=== PATIENT | female | born 1970 | race African-American/Black ===

== ENCOUNTER 2018-08-12 16:19 | Inpatient (IN) ==
[2018-08-12] MEDS ORDERED: Sod Chloride 0.9% Inj 1,000 ML IV.CONT SCH ×2 (16:30→19:02)
--- NOTE | 2018-08-12 16:40 | ED ---
HPI General Chief Complaint: Stroke Alert Stated Complaint: Medical Time Seen by Provider: 08/12/18 16:29 Source: EMS Mode of arrival: EMS Limitations: altered mental status History of Present Illness HPI Narrative: Patient is a 48-year-old female, past medical history significant for type 2 diabetes controlled with insulin, and diabetic retinopathy, who presents with complaint of difficulty swallowing. She was at the pharmacometrician office today to have a laser procedure done to her right eye. She had a lidocaine injection and then became unresponsive temporarily. She then began to complain of difficulty swallowing plus slight shortness of breath. She was given IM epinephrine, Benadryl and was brought here. EMS reports an elevated blood glucose. Patient complains of difficulty swallowing, dizziness. No numbness nor weakness. She denies throat swelling. Onset (ago): hour(s) Location: Reports speech and dysarthria History of same: No Exacerbating factors: none Context: Reports sudden onset On Anticoagulants: No Associated symptoms: Reports vertigo Treatments Prior to Arrival: Reports other medication Related Data Home Medications Medication Instructions Recorded Confirmed insulin aspart U-100 [Novolog 1 unit SUBCUT TID 08/12/18 08/12/18 U-100 Insulin aspart] insulin glargine [Lantus U-100 25 unit SUBCUT HS 08/12/18 08/12/18 Insulin] Allergies Allergy/AdvReac Type Severity Reaction Status Date / Time ketorolac Allergy Severe Hives Verified 08/12/18 16:24 Review of Systems ROS: all other systems reviewed are negative [facility] Medical History Medical History Diabetes (Acute) Surgical History Surgical History H/O eye surgery (Acute) H/O knee surgery (Acute) Hx of cholecystectomy (Acute) Social History Social History Substance History: No History of Abuse Second Hand Smoke Exposure: No Smoking Status: Never smoker How Often Do You Have a Drink Containing Alcohol: Never Recent Travel in [facility] [[email or web address]] within the Last 8 Weeks: No Exam Narrative Exam Narrative: GENERAL: well-appearing female in no acute distress, patch on R eye SKIN: Focused skin assessment warm/dry. No rashes. HEAD: Atraumatic. Normocephalic. EYES: Pupils equal and round. No scleral icterus. No injection or drainage. Swelling around R eye, unable to move eye much or open eyelid ENT: No nasal bleeding or discharge. Mucous membranes pink and moist. NECK: Trachea midline. No JVD. CARDIOVASCULAR: Regular rate and rhythm. No murmur appreciated. RESPIRATORY: No accessory muscle use. Clear to auscultation. Breath sounds equal bilaterally. GASTROINTESTINAL: Abdomen soft, non-tender, nondistended. Hepatic and splenic margins not palpable. MUSCULOSKELETAL: No obvious deformities. No clubbing. No cyanosis. No edema. NEUROLOGICAL: Awake and alert. No easily visible facial droop, but R face is slightly swollen. Motor grossly within normal limits. Slurred speech. No ataxia. Normal sensation. PSYCHIATRIC: Appropriate mood and affect; insight and judgment normal. Course Initial Documented Vital Signs Temperature 97.8 F 08/12/18 16:25 Pulse Rate 89 08/12/18 16:25 Respiratory Rate 17 08/12/18 16:25 Blood Pressure 178/86 H 08/12/18 16:25 Pulse Oximetry 100 08/12/18 16:25 Last Documented Vital Signs Temperature 97.7 F 08/12/18 17:41 Pulse Rate 86 08/12/18 17:41 Respiratory Rate 17 08/12/18 17:41 Blood Pressure 177/70 H 08/12/18 17:41 Pulse Oximetry 100 08/12/18 17:41 NIH Stroke Scale NIH Stroke Scale Level of Consciousness: 1-Drowsy Orientation Questions: 0-Answers both correct Responds to Commands: 0-Both tasks correct Visual Duffy: 0-No visual field defect Facial Movement: 0-Normal Motor Functions Arm LEFT: 0-No drift Motor Functions Arm RIGHT: 0-No drift Motor Functions Leg LEFT: 0-No drift Motor Functions Leg RIGHT: 0-No drift Limb Ataxia: 0-No ataxia Sensory Loss: 0-No sensory loss Best Language: 0-Normal Articulation: 1-Mild dysarthia Total: 2 Medical Decision Making MDM Narrative Medical decision making narrative: Patient is a 48-year-old female with history of diabetes who presents with complaint of sudden onset difficulty swallowing, slurred speech, dizziness that occurred within the last 2 hours. Stroke alert was then activated. CT head, CTA, CT perfusion were all unremarkable. Patient' s dysarthria and dysphasia resolved leaving only slight dizziness. Labs are unremarkable. I spoke with Dr. Dai, neurologist on-call, who recommended that she not receive TPA but be admitted for TIA workup with MRI. I then spoke with Dr. Valencia whom agreed to the admission. Medical Screen Exam Complete: Yes Emergency Medical Condition: Yes Differential Diagnosis Differential Diagnosis: Differential diagnosis includes but is not limited to acute CVA, allergic reaction, syncope, seizure. Medical Records Medical records reviewed: Yes I reviewed the patient's medical records. Lab Data Lab results reviewed: Yes I reviewed the patient's lab results. Result diagrams: 08/12/18 16:30 08/12/18 16:30 POC Results POC Urine Results Negative Lab Results 08/12/18 08/12/18 08/12/18 Range/Units 16:30 16:30 16:30 WBC 13.8 H (4.0-11.0) th/mm3 RBC 4.22 (4.00-5.30) mil/mm3 Hgb 12.0 (11.6-15.3) gm/dL POC Hgb (Calc) 11.6 (11.6-15.3) g/dL Hct 33.9 L (35.0-46.0) % POC Hct 34.0 L (35-46.0) % MCV 80.4 (80.0-100.0) fL MCH 28.4 (27.0-34.0) pg MCHC 35.3 (32.0-36.0) % RDW 13.7 (11.6-17.2) % Plt Count 259 (150-450) th/mm3 MPV 9.9 (7.0-11.0) fL Prelim Diff (Auto) Slide review pending Neut % (Auto) 53.6 (16.0-70.0) % Lymph % (Auto) 37.8 (9.0-44.0) % [place] % (Auto) 6.4 (0.0-8.0) % Eos % (Auto) 1.6 (0.0-4.0) % Baso % (Auto) 0.6 (0.0-2.0) % Neut # (Auto) 7.4 (1.8-7.7) th/mm3 Lymph # (Auto) 5.2 H (1.0-4.8) th/mm3 [place] # (Auto) 0.9 (0.0-0.9) th/mm3 Eos # (Auto) 0.2 (0.0-0.4) th/mm3 Baso # (Auto) 0.1 (0.0-0.2) th/mm3 WBC Differential Manual diff final Seg Neuts % (Manual) 55 (16-70) % Lymphocytes % (Manual) 36 (9-44) % Monocytes % (Manual) 8 (0-8) % Basophils % (Manual) 1 (0-2) % Abs Neuts (Manual) 7.6 (1.8-7.7) th/mm3 Differential Comment . Platelet Estimate Normal (Normal) Platelet Morphology Normal (Normal) RBC Morphology Normal (Normal) PT 9.6 L (9.8-11.6) sec INR 0.9 Ratio APTT 21.8 L (24.3-30.1) sec POC Sodium 138 (137-144) mmol/L Sodium 138 (136-145) meq/L POC Potassium 3.4 L (3.6-5.0) mmol/L Potassium 3.5 (3.5-5.1) meq/L POC Chloride 101 L (102-111) mmol/L Chloride 102 (98-107) meq/L Carbon Dioxide 23.1 (21.0-32.0) meq/L Anion Gap 13 (5-15) meq/L POC BUN 18 (5-21) mg/dL BUN 16 (7-18) mg/dL Creatinine 0.90 (0.50-1.00) mg/dL POC Creatinine 0.6 (0.6-1.3) mg/dL Estimated GFR 82 L (>89) mL/min POC Glucose 342 H (68-110) mg/dL Random Glucose 338 H (74-106) mg/dL Calcium 9.0 (8.5-10.1) mg/dL Total Creatine Kinase 210 H (26-192) U/L CK-MB (CK-2) 4.3 H (0.5-3.6) ng/mL CK-MB (CK-2) % 2.0 (0.0-4.0) % Troponin I Less than 0.02 L (0.02-0.05) ng/mL 08/12/18 Range/Units 16:31 WBC (4.0-11.0) th/mm3 RBC (4.00-5.30) mil/mm3 Hgb (11.6-15.3) gm/dL POC Hgb (Calc) (11.6-15.3) g/dL Hct (35.0-46.0) % POC Hct (35-46.0) % MCV (80.0-100.0) fL MCH (27.0-34.0) pg MCHC (32.0-36.0) % RDW (11.6-17.2) % Plt Count (150-450) th/mm3 MPV (7.0-11.0) fL Prelim Diff (Auto) Neut % (Auto) (16.0-70.0) % Lymph % (Auto) (9.0-44.0) % [place] % (Auto) (0.0-8.0) % Eos % (Auto) (0.0-4.0) % Baso % (Auto) (0.0-2.0) % Neut # (Auto) (1.8-7.7) th/mm3 Lymph # (Auto) (1.0-4.8) th/mm3 [place] # (Auto) (0.0-0.9) th/mm3 Eos # (Auto) (0.0-0.4) th/mm3 Baso # (Auto) (0.0-0.2) th/mm3 WBC Differential Seg Neuts % (Manual) (16-70) % Lymphocytes % (Manual) (9-44) % Monocytes % (Manual) (0-8) % Basophils % (Manual) (0-2) % Abs Neuts (Manual) (1.8-7.7) th/mm3 Differential Comment Platelet Estimate (Normal) Platelet Morphology (Normal) RBC Morphology (Normal) PT (9.8-11.6) sec INR Ratio APTT (24.3-30.1) sec POC Sodium (137-144) mmol/L Sodium (136-145) meq/L POC Potassium (3.6-5.0) mmol/L Potassium (3.5-5.1) meq/L POC Chloride (102-111) mmol/L Chloride (98-107) meq/L Carbon Dioxide (21.0-32.0) meq/L Anion Gap (5-15) meq/L POC BUN (5-21) mg/dL BUN (7-18) mg/dL Creatinine (0.50-1.00) mg/dL POC Creatinine (0.6-1.3) mg/dL Estimated GFR (>89) mL/min POC Glucose 361 H (68-110) mg/dL Random Glucose (74-106) mg/dL Calcium (8.5-10.1) mg/dL Total Creatine Kinase (26-192) U/L CK-MB (CK-2) (0.5-3.6) ng/mL CK-MB (CK-2) % (0.0-4.0) % Troponin I (0.02-0.05) ng/mL Imaging Data Attestation: I personally reviewed and interpreted this imaging study as follows : My impression: No large intracranial hemorrhage. Radiologist's impression: Head CT 08/12/18 16:29 CONCLUSION: 1. Negative CT Head non contrast. Report was called by Dr. Ulloa to Dr. Cristy Steen at 4:57 PM on 08/12/2018. Head CTA 08/12/18 16:29 CONCLUSION: 1. Negative CTA Head. Findings were called to Dr. Dai at 5:12 PM on 08/12/2018. Neck CTA 08/12/18 16:29 CONCLUSION: 1. Negative CTA Carotid. CT CAD 08/12/18 16:31 CONCLUSION: Physiological brain perfusion parameters with RAPID analysis as above. The decision for consideration of therapy is multi factorial and multi disciplinary relying on subjective and objective clinical data. This data is not construed or intended to be the sole determinant of treatment eligibility. ECG Data EKG Prior to Arrival: No Attestation: I personally reviewed and interpreted this ECG as follows: (Sinus rhythm at a rate of 87 bpm. There are T wave inversions/T wave flattening in almost all the leads.) Discharge Plan Discharge Disposition Patient Disposition: 30 Still Patient Discharge Condition Condition: Stable Discharge Details Diagnosis: Transient cerebral ischemia Physicians Team ED Provider: Shannan Steen Other Providers: Alfredo Dai Rxs /Orders / Referrals /Forms Prescriptions: No Action insulin glargine [Lantus U-100 Insulin] 100 unit/mL Solution 25 unit SUBCUT HS RF: 0 insulin aspart U-100 [Novolog U-100 Insulin aspart] 100 unit/mL Solution 1 unit SUBCUT TID RF: 0 Status ED Status: With Doctor
[2018-08-12 16:50] LABS: Baso # (Auto) 0.1 th/mm3 (0.0-0.2); Baso % (Auto) 0.6 % (0.0-2.0); Eos # (Auto) 0.2 th/mm3 (0.0-0.4); Eos % (Auto) 1.6 % (0.0-4.0); Hematocrit 33.9 % (35.0-46.0); Lymph # (Auto) 5.2 th/mm3 (1.0-4.8); Lymph % (Auto) 37.8 % (9.0-44.0); Mean Corpuscular HGB Conc 35.3 % (32.0-36.0); Mean Corpuscular Hemoglobin 28.4 pg (27.0-34.0); Mean Corpuscular Volume 80.4 fL (80.0-100.0); Mean Platelet Volume 9.9 fL (7.0-11.0); Mono # (Auto) 0.9 th/mm3 (0.0-0.9); Mono % (Auto) 6.4 % (0.0-8.0); Neut # (Auto) 7.4 th/mm3 (1.8-7.7); Neut % (Auto) 53.6 % (16.0-70.0); Platelet Count 259 th/mm3 (150-450); Red Blood Count 4.22 mil/mm3 (4.00-5.30); Red Cell Distribution Width 13.7 % (11.6-17.2); White Blood Count 13.8 th/mm3 (4.0-11.0)
--- NOTE | 2018-08-12 16:59 | CT ---
EXAM DATE: 08/12/2018 4:32 PM EDT AGE/SEX: 48 years / Female INDICATIONS: Dizzy after eye surgery difficulty swallowing CLINICAL DATA: This is the patient's initial encounter. Patient reports that signs and symptoms have been present for 1 day and indicates a pain score of 0/10. MEDICAL/SURGICAL HISTORY: None. None. RADIATION DOSE: 34.56 CTDI (mGy) COMPARISON: [facility] [place]ERE[place]AL [place]F W CONTRAST W 3D, 08/12/2018. . TECHNIQUE: CT of the head without contrast. Using automated exposure control and adjustment of the mA and/or kV according to patient size, radiation dose was kept as low as reasonably achievable to ob tain optimal diagnostic quality images. DICOM format image data is available electronically for revi ew and comparison. FINDINGS: Cerebrum: The ventricles are normal for age. No evidence of midline shift, mass lesion, hemorrhage or acute infarction. No extraaxial fluid collections are seen. Posterior Fossa: The cerebellum and brainstem are intact. The 4th ventricle is midline. The cerebe llopontine angle is unremarkable. Extracranial: The visualized portion of the orbits is intact. Skull: The calvaria is intact. No evidence of skull fracture. CONCLUSION: 1. Negative CT Head non contrast. Report was called by Dr. Ulloa to Dr. Cristy Steen at 4:57 PM on 08/12/2018. Electronically signed by: Chandana Ulloa MD 08/12/2018 4:58 PM EDT
[2018-08-12 17:04] LABS: Anion Gap 13 meq/L (5-15); Blood Urea Nitrogen 16 mg/dL (7-18); Carbon Dioxide 23.1 meq/L (21.0-32.0); Chloride 102 meq/L (98-107); Glomerular Filtration Rate 82 mL/min (>89); Glucose,Random 338 mg/dL (74-106); Potassium 3.5 meq/L (3.5-5.1); Sodium 138 meq/L (136-145)
[2018-08-12 17:05] LABS: Activated Partial Thrombo Time 21.8 sec (24.3-30.1); INR 0.9 Ratio; Prothrombin Time 9.6 sec (9.8-11.6)
[2018-08-12 17:07] LABS: Creatine Kinase 210 U/L (26-192)
[2018-08-12] MEDS ORDERED: Acetaminophen Inj 650 MG/65 ML VIAL IV.SIG ONE (17:09)
--- NOTE | 2018-08-12 17:14 | CT ---
EXAM DATE: 08/12/2018 4:32 PM EDT AGE/SEX: 48 years / Female INDICATIONS: Stroke alert, difficulty swallowing and dizzy after eye procedure. CLINICAL DATA: This is the patient's initial encounter. Patient reports that signs and symptoms have been present for 1 day and indicates a pain score of Nonresponsive. MEDICAL/SURGICAL HISTORY: Non-responsive. Non-responsive. RADIATION DOSE: 27.60 CTDI (mGy) ; Combined studies COMPARISON: [facility] [place] CEREBRAL PERF W CONTRAST W 3D, 08/12/2018. C, CT HEAD W/O CONTRAST, 2017. . TECHNIQUE: Volumetric scanning was performed using a multi-row detector CT scanner during bolus infu jayne of 85 ml Visipaque 320 (iodixanol) nonionic water-soluble contrast as a cumulative dose for mul tiple exams. The data was post processed with a variety of visualization algorithms including full volume maximum intensity projection, multi-planar sliding thin slab reformation, curved planar reform ation, and surface rendering techniques. Using automated exposure control and adjustment of the mA a nd/or kV according to patient size, radiation dose was kept as low as reasonably achievable to obtain optimal diagnostic quality images. DICOM format image data is available electronically for review a nd comparison. FINDINGS: There is excellent visualization of the major intracranial arteries out to the second-order branch ve ssels. There is no evidence for aneurysm, vessel truncation or stenosis, and no evidence for vascula r malformation. CONCLUSION: 1. Negative CTA Head. Findings were called to Dr. Dai at 5:12 PM on 08/12/2018. Electronically signed by: Chandana Ulloa MD 08/12/2018 5:13 PM EDT
--- NOTE | 2018-08-12 17:15 | CT ---
EXAM DATE: 08/12/2018 4:34 PM EDT AGE/SEX: 48 years / Female INDICATIONS: Dizzy after eye surgery trouble swallowing CLINICAL DATA: This is the patient's initial encounter. Patient reports that signs and symptoms have been present for 1 day and indicates a pain score of 0/10. MEDICAL/SURGICAL HISTORY: None. None. RADIATION DOSE: 314.22 CTDI (mGy) COMPARISON: C, CT HEAD W/O CONTRAST, 08/12/2018. C, CTA HEAD W CONTRAST W 3D, 08/12/2018. . TECHNIQUE: CT of the head after intravenous administration of 40 ml Visipaque 320 (iodixanol) nonio hal water-soluble contrast as a single exam dose. Using automated exposure control and adjustment of the mA and/or kV according to patient size, radiation dose was kept as low as reasonably achievable to obtain optimal diagnostic quality images. DICOM format image data is available electronically for review and comparison. FINDINGS: 1. CBF (<30%) Volume (ml): 0 2. Perfusion (Tmax>6.0s) Volume (ml): 0 3. Mismatch Volume (ml) (Tmax>6.0 - CBF): 0 CONCLUSION: Physiological brain perfusion parameters with RAPID analysis as above. The decision for consideration of therapy is multi factorial and multi disciplinary relying on subjec tive and objective clinical data. This data is not construed or intended to be the sole determinant of treatment eligibility. Electronically signed by: Chandana Ulloa MD 08/12/2018 5:13 PM EDT
[2018-08-12 17:30] LABS: Creatine Kinase MB 4.3 ng/mL (0.5-3.6)
--- NOTE | 2018-08-12 17:31 | CT ---
EXAM DATE: 08/12/2018 4:32 PM EDT AGE/SEX: 48 years / Female INDICATIONS: Stroke alert, difficulty swallowing and dizzy after eye procedure. CLINICAL DATA: This is the patient's initial encounter. Patient reports that signs and symptoms have been present for 1 day and indicates a pain score of Nonresponsive. MEDICAL/SURGICAL HISTORY: Non-responsive. Non-responsive. RADIATION DOSE: 27.60 CTDI (mGy) ; Combined studies COMPARISON: No prior exams available for comparison. TECHNIQUE: Volumetric scanning was performed using a multirow detector CT scanner during bolus infus ion of 85 ml Visipaque 320 (iodixanol) nonionic water-soluble contrast as a cumulative dose for mult iple exams. The data was postprocessed with a variety of visualization algorithms including full-vo lume maximum intensity projection, multiplanar sliding thin-slab reformation, curved-planar reformati on, and surface-rendering techniques. Using automated exposure control and adjustment of the mA and/ or kV according to patient size, radiation dose was kept as low as reasonably achievable to obtain op timal diagnostic quality images. DICOM format image data is available electronically for review and comparison. FINDINGS: Aortic Arch: There is a three-vessel origin of the great vessels from the aorta. No evidence of ost ial narrowing Right Carotid: The common carotid artery is intact. The carotid bulb has a normal configuration wit hout ulceration or narrowing. The internal carotid artery lumen is smooth without stenosis. The ext ernal carotid artery is intact. Left Carotid: The common carotid artery is intact. The carotid bulb has a normal configuration with out ulceration or narrowing. The internal carotid artery lumen is smooth without stenosis. The exte rnal carotid artery is intact. Vertebrals: The vertebral arteries have a symmetric diameter. No stenotic lesions are seen. Percent stenosis is calculated using the diameter of the stenotic region over the diameter of the nor mal distal internal carotid artery. CONCLUSION: 1. Negative CTA Carotid. Electronically signed by: Chandana Ulloa MD 08/12/2018 5:30 PM EDT
[2018-08-12 17:45] LABS: Lymphocytes 36 % (9-44); Monocytes 8 % (0-8)
[2018-08-12 17:49] LABS: RBC Morphology Normal (Normal)
[2018-08-12 17:50] LABS: Platelet Estimate Normal (Normal); Platelet Morphology Normal (Normal)
--- NOTE | 2018-08-12 18:37 | P.HP ---
History of Present Illness Service: [facility] Hospitalist service Chief Complaint: transient dizziness, dysarthria History of Present Illness: Patient is a 48-year-old right-handed female with known history of diabetes type 2 insulin requiring on 25 units Lantus at bedtime states good hypoglycemic awareness, neuropathy mild hypertension, chronic back pain who had left eye laser surgery done on August 10 did very well today had her right eye done for laser surgery. Per ER notes, a lidocaine injection felt dizzy associated with and felt hot and clammy. + LOC per ER report . Patient also states that had palpitations and had difficulty swallowing .She was given IV Benadryl, IV epinephrine and sent here. Blood sugar checked at that time was 107. And patient was sent here for further evaluation and management. Patient states states good hypoglycemic awareness with blood sugars usually of around 200s. She also has neuropathy and takes gabapentin 300 mg twice a day and hydrocodone 7.5 every 6 as needed. Patient also with chronic back pain and had had right foot surgery for nail puncture wound in the past. 12 EKG shows sinus rhythm, with LVH with diffuse STTW flattening. CXR shows no infiltrates Had gallbladder surgery and 2 right knee arthroscopic surgery left index finger surgery and tubal ligation. Patient admitted for further evaluation and management. [facility] - History History Provided By: Patient - Medical History Medical History: Medical History (Last Reviewed 08/12/18 @ 18:05 by Shannan Steen MD) Diabetes - Surgical History Surgical History: Surgical History (Last Reviewed 08/12/18 @ 18:05 by Shannan Steen MD) H/O eye surgery H/O knee surgery Hx of cholecystectomy - Social History I have reviewed the patient's Social History: Yes - Tobacco History Second Hand Smoke Exposure: No Tobacco Use In Past 30 Days: No Smoking Status: Never smoker - Alcohol History How Often Do You Have a Drink Containing Alcohol: Never - Substance Use History Substance History: No History of Abuse - Travel History Recent Travel in the [facility] Within the Last 8 Weeks: No - Immunization History Tetanus Immunization: >5 Years Hx Influenza Vaccine This Season: No Medications and Allergies Active Medications: Active Medications Sodium Chloride (Ns Inj) 1,000 mls @ 70 mls/hr IV.CONT .[id number] DANIEL Stop: 08/13/18 06:47 Last Admin: 08/12/18 17:02 Dose: 70 mls/hr Sodium Chloride (Ns Flush) 2 ml IV.FLUSH PRN PRN PRN Reason: FLUSH AFTER USING IV ACCESS Last Admin: 08/12/18 17:03 Dose: 2 ml Allergies Allergy/AdvReac Type Severity Reaction Status Date / Time ketorolac Allergy Severe Hives Verified 08/12/18 16:24 Home Medications Medication Instructions Recorded Confirmed Type insulin aspart U-100 [Novolog 1 unit SUBCUT TID 08/12/18 08/12/18 History U-100 Insulin aspart] insulin glargine [Lantus U-100 25 unit SUBCUT HS 08/12/18 08/12/18 History Insulin] Exam Vital signs: Vital Signs 08/12/18 16:25 08/12/18 16:29 08/12/18 17:41 Temperature 97.8 F 97.7 F Pulse Rate 89 89 86 Respiratory Rate 17 17 Blood Pressure 178/86 H 177/70 H Pulse Oximetry 100 100 100 Intake & Output 08/11/18 08/12/18 08/12/18 18:59 06:59 18:59 Intake Total 65 / 65 Balance 65 / 65 Weight 83.915 kg Intake: IV 65 / 65 Ofirmev Inj 650 mg In 65 ml @ 65 / 65 400 mls/hr IV.SIG ONCE ONE Rx#: [id number] Narrative: Patient is awake alert oriented x3 not in any form of distress HEENT exam anicteric sclerae right pupil is dilated around 5 mm nonreactive Left pupil 2-3-minute millimeters reactive Neck was supple no JVD no bruit Chest lungs bilateral breath sounds equal no rales no wheezes Heart regular rhythm Abdomen is soft good bowel sounds no guarding Extremities no edema Neurologic exam ANO x3 clear speech HEENT exam visual field grossly unremarkable sees both eyes right eye blurry Extraocular muscles full range of motion pupils right IV 5 mm dilated Left eye 3 mm reactive grossly no sensory deficit motor moves all extremities equally Results - Labs CBC & Chem 7: 08/12/18 16:30 08/12/18 16:30 Labs: Laboratory Results - last 24 hr 08/12/18 08/12/18 08/12/18 16:30 16:30 16:30 WBC 13.8 H RBC 4.22 Hgb 12.0 POC Hgb (Calc) 11.6 Hct 33.9 L POC Hct 34.0 L MCV 80.4 MCH 28.4 MCHC 35.3 RDW 13.7 Plt Count 259 MPV 9.9 Prelim Diff (Auto) Slide review pending Neut % (Auto) 53.6 Lymph % (Auto) 37.8 [place] % (Auto) 6.4 Eos % (Auto) 1.6 Baso % (Auto) 0.6 Neut # (Auto) 7.4 Lymph # (Auto) 5.2 H [place] # (Auto) 0.9 Eos # (Auto) 0.2 Baso # (Auto) 0.1 WBC Differential Manual diff final Seg Neuts % (Manual) 55 Lymphocytes % (Manual) 36 Monocytes % (Manual) 8 Basophils % (Manual) 1 Abs Neuts (Manual) 7.6 Differential Comment . Platelet Estimate Normal Platelet Morphology Normal RBC Morphology Normal PT 9.6 L INR 0.9 APTT 21.8 L POC Sodium 138 Sodium 138 POC Potassium 3.4 L Potassium 3.5 POC Chloride 101 L Chloride 102 Carbon Dioxide 23.1 Anion Gap 13 POC BUN 18 BUN 16 Creatinine 0.90 POC Creatinine 0.6 Estimated GFR 82 L POC Glucose 342 H Random Glucose 338 H Calcium 9.0 Total Creatine Kinase 210 H CK-MB (CK-2) 4.3 H CK-MB (CK-2) % 2.0 Troponin I Less than 0.02 L 08/12/18 16:31 WBC RBC Hgb POC Hgb (Calc) Hct POC Hct MCV MCH MCHC RDW Plt Count MPV Prelim Diff (Auto) Neut % (Auto) Lymph % (Auto) [place] % (Auto) Eos % (Auto) Baso % (Auto) Neut # (Auto) Lymph # (Auto) [place] # (Auto) Eos # (Auto) Baso # (Auto) WBC Differential Seg Neuts % (Manual) Lymphocytes % (Manual) Monocytes % (Manual) Basophils % (Manual) Abs Neuts (Manual) Differential Comment Platelet Estimate Platelet Morphology RBC Morphology PT INR APTT POC Sodium Sodium POC Potassium Potassium POC Chloride Chloride Carbon Dioxide Anion Gap POC BUN BUN Creatinine POC Creatinine Estimated GFR POC Glucose 361 H Random Glucose Calcium Total Creatine Kinase CK-MB (CK-2) CK-MB (CK-2) % Troponin I - Imaging Impressions Head CT 08/12/18 16:29 CONCLUSION: 1. Negative CT Head non contrast. Report was called by Dr. Ulloa to Dr. Cristy Steen at 4:57 PM on 08/12/2018. Head CTA 08/12/18 16:29 CONCLUSION: 1. Negative CTA Head. Findings were called to Dr. Dai at 5:12 PM on 08/12/2018. Neck CTA 08/12/18 16:29 CONCLUSION: 1. Negative CTA Carotid. CT CAD 08/12/18 16:31 CONCLUSION: Physiological brain perfusion parameters with RAPID analysis as above. The decision for consideration of therapy is multi factorial and multi disciplinary relying on subjective and objective clinical data. This data is not construed or intended to be the sole determinant of treatment eligibility. Caprini VTE Risk Assessment Caprini VTE Risk Assessment: Moderate/High Risk (score >= 2) (recent laser surgery) VTE Pharmacological Exception Reason: Documented Caprini Risk Assessment Model: Point Value = 1 Point Value = 2 Point Value = 3 Point Value = 5 Age 41-60 Minor surgery BMI > 25 kg/m2 Swollen legs Varicose veins or History of unexplained or recurrent spontaneous Oral contraceptives or hormone replacement Sepsis (< 1 month) Serious lung disease, including pneumonia (< 1 month) Abnormal pulmonary function Acute myocardial infarction Congestive heart failure (< 1 month) History of inflammatory bowel disease Medical patient at bed rest Age 61-74 Arthroscopic surgery Major open surgery (> 45 min) Laparoscopic surgery (> 45 min) Malignancy Confined to bed (> 72 hours) Immobilizing plaster cast Central venous access Age >= 75 History of VTE Family history of VTE Factor V Leiden Prothrombin [id number] Lupus anticoagulant Anticardiolipin antibodies Elevated serum homocysteine Heparin-induced thrombocytopenia Other congenital or acquired thrombophilia Stroke (< 1 month) Elective arthroplasty Hip, pelvis, or leg fracture Acute spinal cord injury (< 1 month) Prophylaxis Regimen: Total Risk Factor Score Risk Level Prophylaxis Regimen 0-1 Low Early ambulation 2 Moderate Order ONE of the following: *Sequential Compression Device (SCD) *Heparin 5000 units SQ BID 3-4 Higher Order ONE of the following medications: *Heparin 5000 units SQ TID *Enoxaparin/Lovenox 40 mg SQ daily (WT < 150 kg, CrCl > 30 mL/min) *Enoxaparin/Lovenox 30 mg SQ daily (WT < 150 kg, CrCl > 10-29 mL/min) *Enoxaparin/Lovenox 30 mg SQ BID (WT < 150 kg, CrCl > 30 mL/min) AND/OR *Sequential Compression Device (SCD) 5 or more Highest Order ONE of the following medications: *Heparin 5000 units SQ TID (Preferred with Epidurals) *Enoxaparin/Lovenox 40 mg SQ daily (WT < 150 kg, CrCl > 30 mL/min) *Enoxaparin/Lovenox 30 mg SQ daily (WT < 150 kg, CrCl > 10-29 mL/min) *Enoxaparin/Lovenox 30 mg SQ BID (WT < 150 kg, CrCl > 30 mL/min) AND *Sequential Compression Device (SCD) Assessment and Plan - Plan 48-year-old female right-handed presenting with Transient dysarthria/dizziness now exam neurologically intact rule out TIA vs Post anesthesia effect Possible Relative hypoglycemic reaction CTA of the head normal neck CTA- pending We will proceed with MRI of the head Neurology service was consulted Speech therapy consult Do a bedside swallowing evaluation ASA daily Diabetes type 2 insulin requiring Possible relative hypoglycemic reaction - patient use to glucose readings 200s and above -sliding scale NovoLog HOld his HS Lantus for now check hemoglobin A1C Diabetic retinopathy OU Outpatient follow-up with ophthalmology Diabetic neuropathy Continue on gabapentin 300 mg twice a day Elevated BP readings no known history of HTN - patient did get IM epinephrine prior to coming here - monitor BPs - get CXR- 12LEKG shows LVH by voltage criteria and LVH strain - get echo Chronic back pain Continue on hydrocodone 7.5 mg every 8 as needed for pain Bilateral EDs/SCDs Hold chemical prophylaxis till MRI resulted and + recent eye laser surgery
[2018-08-12 18:41] LABS: Bilirubin,Urine Negative (Negative); Clarity,Urine Clear (Clear); Color,Urine Straw (Yellw/Straw); Glucose,Urine (UA) 500 or Greater mg/dL (Negative); Leukocyte Esterase,Urine Negative (Negative); Nitrite,Urine Negative (Negative); Specific Gravity,Urine 1.033 (1.002-1.035); Squamous Epithelial Cell,Urine 2 /hpf (0-5)
[2018-08-12] MEDS ORDERED: Dextrose 50% in Water 50 ML Vial IV.PUSH PRN (18:55)
[2018-08-12] MEDS ORDERED: Butalbital/APAP/Caff 50/325/40 MG Tablet PO ONE (19:52)
--- NOTE | 2018-08-12 20:25 | MR ---
EXAM DATE: 08/12/2018 7:48 PM EDT AGE/SEX: 48 years / Female INDICATIONS: Dizziness. CVA. CLINICAL DATA: This is the patient's subsequent encounter. Patient reports that signs and symptoms h ave been present for 1 day and indicates a pain score of 0/10. MEDICAL/SURGICAL HISTORY: Diabetes. Cholecystectomy. Right foot surgery. Laser procedure left eye. COMPARISON: [facility], CT CEREBRAL PERF W CONTRAST W 3D, 08/12/2018. [facility], CT HEAD W/O CONTRAST, 2017. [facility], CTA HEAD W CONTRAST W 3D, 08/12/2018. . TECHNIQUE: Multiplanar, multisequence examination of the brain was performed without contrast. FINDINGS: Cerebrum: The ventricles are normal for age. No evidence of midline shift, mass lesion, hemorrhage or acute infarction. No extraaxial fluid collections are seen. The pituitary gland and suprasellar cistern are normal in configuration. White Matter: No significant signal abnormalities are seen in the white matter. Posterior Fossa: The cerebellum and brainstem are intact. The 4th ventricle is midline. The cerebel lopontine angle is unremarkable. The cerebellar tonsils are normal in position. Diffusion Imaging: No focal areas of restricted diffusion are seen. No evidence of acute infarction . Extracranial: The visualized portions of the orbits and paranasal sinuses are unremarkable. CONCLUSION: Normal noncontrast MRI of the brain. There is no acute infarct or other acute intracrania l abnormality demonstrated. Electronically signed by: Jack Dobson MD 08/12/2018 8:23 PM EDT
[2018-08-12] MEDS: Insulin NovoLOG Aspart Correctional Sugar Inj SQ SCH (20:46)
[2018-08-12] MEDS ORDERED: Insulin Detemir Inj 1,000 UNIT/10 ML Vial SQ SCH (21:00)
[2018-08-12] MEDS: Gabapentin 300 MG Capsule PO SCH (21:25)
--- NOTE | 2018-08-12 21:28 | MB ---
cc: Alfredo Dai MD, PhD DATE: 08/12/2018 REASON FOR CONSULTATION: Stroke alert. HISTORY OF PRESENT ILLNESS: Ms. Floyd is a very pleasant 48-year-old female with diabetic retinopathy and diabetes. She was at the neurocritical care physician today for laser surgery for the right eye for diabetic retinopathy. She had similar surgery last Friday. When they went to inject the right eye, she suddenly developed severe difficulty swallowing, lightheadedness. She felt hot all over and clammy. Also, palpitations. Blood glucose is 107. She came to the ER. Stroke alert was called. Her symptoms improved such that her NIH stroke scale improved to a 0. I discussed the case with Dr. Steen. Her CT was negative. CT perfusion and CT angiogram all were negative. Given the relatively mild symptomatology with improvement, I recommended not to give tPA. The patient has continued to improve back to baseline. PAST MEDICAL HISTORY: History of diabetes, diabetic retinopathy. NEUROLOGICAL EXAMINATION: VITAL SIGNS: Her blood pressure is 177/70, pulse is 86, respirations 17, temperature 98 degrees. NEUROLOGIC: Higher cortical functions normal. Cranial nerves are intact. Motor exam: Normal strength and tone of all groups. There is no drift. Reflexes are symmetric. Cerebellar testing normal. TECHNIQUE: CT of the brain was normal. A CTA of the head was normal. CTA neck is within normal limits. CT brain perfusion study was normal. She has also had an MRI scan of the brain and this is within normal limits as well. LABORATORY DATA: The white count 13,800, hemoglobin 12, hematocrit 33.9%, platelet count 259,000. PT 9.6, INR 1.9, PTT 21.8. Sodium is 138, potassium 3.4, chloride 101, CO2 of 23. BUN is 18, creatinine 0.9. IMPRESSION: Possible transient ischemic attack, although this could have been a vasovagal type reaction as well. RECOMMENDATIONS: Aspirin 81 mg daily. We will monitor cardiac telemetry. Also, echocardiogram and lipid panel. As mentioned above, the patient was not a tPA candidate due to the mild symptomatology with resolution. Her NIH stroke scale when she presented was a 2 and now is a 0. Alfredo Dai MD, PhD ZOHRA/ha , 08:49 PM , 08:55 PM
[2018-08-12 22:12] LABS: Chol/HDL Ratio 4.55 Ratio
--- NOTE | 2018-08-13 06:52 | XR ---
EXAM DATE: 08/13/2018 6:00 AM EDT AGE/SEX: 48 years / Female INDICATIONS: Hypertension, vertigo, short of breath CLINICAL DATA: This is the patient's subsequent encounter. Patient reports that signs and symptoms h ave been present for 2 days and indicates a pain score of 3/10. MEDICAL/SURGICAL HISTORY: Diabetes. hypertension . laser eye surgery, foot surgery COMPARISON: No prior exams available for comparison. FINDINGS: A single AP view of the chest demonstrates the lungs to be symmetrically aerated without evidence of mass, infiltrate or effusion. The cardiomediastinal contours are unremarkable. Osseous structures a re intact. CONCLUSION: 1. No acute cardiopulmonary disease. Electronically signed by: Sukhwinder Underwood MD 08/13/2018 6:51 AM EDT
[2018-08-13] MEDS: Insulin NovoLOG Aspart Correctional Sugar Inj SQ SCH ×3 (09:55→18:21)
[2018-08-13] MEDS: Gabapentin 300 MG Capsule PO SCH (09:58)
[2018-08-13 12:00] LABS: Anion Gap 11 meq/L (5-15); Blood Urea Nitrogen 14 mg/dL (7-18); Calcium 8.6 mg/dL (8.5-10.1); Carbon Dioxide 27.4 meq/L (21.0-32.0); Chloride 103 meq/L (98-107); Cholesterol 184 mg/dL (120-200); Glomerular Filtration Rate Greater Than 89 mL/min (>89); Glucose,Random 327 mg/dL (74-106); Potassium 3.4 meq/L (3.5-5.1); Sodium 141 meq/L (136-145)
[2018-08-13 12:06] LABS: HDL Cholesterol 41.8 mg/dL (40.0-60.0); LDL Cholesterol,Calculated 90 mg/dL (0-99); Triglycerides 263 mg/dL (42-150)
--- NOTE | 2018-08-13 13:18 | P.PN ---
Subjective Interval history: seen with family no complains -just a little pain from right eye speech clear Physical Exam Vital signs: Vital Signs 08/12/18 16:25 08/12/18 16:29 08/12/18 17:35 Temperature 97.8 F Pulse Rate 89 89 Respiratory Rate 17 17 Blood Pressure 178/86 H Pulse Oximetry 100 100 08/12/18 17:41 08/12/18 19:23 08/12/18 21:00 Temperature 97.7 F Pulse Rate 86 79 Respiratory Rate 17 17 17 Blood Pressure 177/70 H 192/85 H Pulse Oximetry 100 08/13/18 08:00 Temperature Pulse Rate Respiratory Rate Blood Pressure Pulse Oximetry 100 Intake & Output 08/12/18 08/13/18 08/13/18 18:59 06:59 18:59 Intake Total 65 / 65 1000 / 1000 Output Total 400 / 400 Balance -335 / -335 1000 / 1000 Weight 83.915 kg Intake: IV 65 / 65 1000 / 1000 NS Inj 1,000 ML @ 70 mls/hr IV. 1000 / 1000 CONT .[id number] DANIEL Rx#:[id number] Ofirmev Inj 650 mg In 65 ml @ 65 / 65 400 mls/hr IV.SIG ONCE ONE Rx#: [id number] Output: Urine 400 / 400 Other: # Voids 1 Narrative: Patient is awake alert oriented x3 not in any form of distress HEENT exam anicteric sclerae right pupil is 3 mmm RTL Left pupil 2-3-minute millimeters reactive Neck was supple no JVD no bruit Chest lungs bilateral breath sounds equal no rales no wheezes Heart regular rhythm Abdomen is soft good bowel sounds no guarding Extremities no edema Neurologic exam ANO x3 clear speech HEENT exam visual field grossly unremarkable sees both eyes right eye blurry Extraocular muscles full range of motion pupils right IV 5 mm dilated grossly no sensory deficit motor moves all extremities equally Results - Labs CBC & Chem 7: 08/12/18 16:30 08/13/18 10:48 Laboratory Results - last 24 hr 08/12/18 08/12/18 08/12/18 16:30 16:30 16:30 WBC 13.8 H RBC 4.22 Hgb 12.0 POC Hgb (Calc) 11.6 Hct 33.9 L POC Hct 34.0 L MCV 80.4 MCH 28.4 MCHC 35.3 RDW 13.7 Plt Count 259 MPV 9.9 Prelim Diff (Auto) Slide review pending Neut % (Auto) 53.6 Lymph % (Auto) 37.8 [place] % (Auto) 6.4 Eos % (Auto) 1.6 Baso % (Auto) 0.6 Neut # (Auto) 7.4 Lymph # (Auto) 5.2 H [place] # (Auto) 0.9 Eos # (Auto) 0.2 Baso # (Auto) 0.1 WBC Differential Manual diff final Seg Neuts % (Manual) 55 Lymphocytes % (Manual) 36 Monocytes % (Manual) 8 Basophils % (Manual) 1 Abs Neuts (Manual) 7.6 Differential Comment . Platelet Estimate Normal Platelet Morphology Normal RBC Morphology Normal PT 9.6 L INR 0.9 APTT 21.8 L POC Sodium 138 Sodium 138 POC Potassium 3.4 L Potassium 3.5 POC Chloride 101 L Chloride 102 Carbon Dioxide 23.1 Anion Gap 13 POC BUN 18 BUN 16 Creatinine 0.90 POC Creatinine 0.6 Estimated GFR 82 L POC Glucose 342 H Random Glucose 338 H Calcium 9.0 Total Creatine Kinase 210 H CK-MB (CK-2) 4.3 H CK-MB (CK-2) % 2.0 Troponin I Less than 0.02 L Triglycerides Cholesterol LDL Cholesterol, Calc HDL Cholesterol Cholesterol/HDL Ratio Urine Color Urine Clarity Urine pH Ur Specific [place] Urine Protein Urine Glucose (UA) Urine Ketones Urine Occult Blood Urine Nitrate Urine Bilirubin Urine Urobilinogen Ur Leukocyte Esterase Urine RBC Urine WBC Ur Squamous Epith Cells Micro UA Comment Ur Microscopic Review Urine Culture Comments 08/12/18 08/12/18 08/12/18 16:30 16:31 17:50 WBC RBC Hgb POC Hgb (Calc) Hct POC Hct MCV MCH MCHC RDW Plt Count MPV Prelim Diff (Auto) Neut % (Auto) Lymph % (Auto) [place] % (Auto) Eos % (Auto) Baso % (Auto) Neut # (Auto) Lymph # (Auto) [place] # (Auto) Eos # (Auto) Baso # (Auto) WBC Differential Seg Neuts % (Manual) Lymphocytes % (Manual) Monocytes % (Manual) Basophils % (Manual) Abs Neuts (Manual) Differential Comment Platelet Estimate Platelet Morphology RBC Morphology PT INR APTT POC Sodium Sodium POC Potassium Potassium POC Chloride Chloride Carbon Dioxide Anion Gap POC BUN BUN Creatinine POC Creatinine Estimated GFR POC Glucose 361 H Random Glucose Calcium Total Creatine Kinase CK-MB (CK-2) CK-MB (CK-2) % Troponin I Triglycerides 326 H Cholesterol 196 LDL Cholesterol, Calc 88 HDL Cholesterol 43.0 Cholesterol/HDL Ratio 4.55 Urine Color Straw Urine Clarity Clear Urine pH 6.0 Ur Specific [place] 1.033 Urine Protein 100 H Urine Glucose (UA) 500 or greater Urine Ketones Negative Urine Occult Blood Small H Urine Nitrate Negative Urine Bilirubin Negative Urine Urobilinogen Less than 2 Ur Leukocyte Esterase Negative Urine RBC 2 Urine WBC 1 Ur Squamous Epith Cells 2 Micro UA Comment Culture not ind Ur Microscopic Review Not Reportable Urine Culture Comments Culture not ind 08/12/18 08/13/18 08/13/18 20:39 09:50 10:48 WBC RBC Hgb POC Hgb (Calc) Hct POC Hct MCV MCH MCHC RDW Plt Count MPV Prelim Diff (Auto) Neut % (Auto) Lymph % (Auto) [place] % (Auto) Eos % (Auto) Baso % (Auto) Neut # (Auto) Lymph # (Auto) [place] # (Auto) Eos # (Auto) Baso # (Auto) WBC Differential Seg Neuts % (Manual) Lymphocytes % (Manual) Monocytes % (Manual) Basophils % (Manual) Abs Neuts (Manual) Differential Comment Platelet Estimate Platelet Morphology RBC Morphology PT INR APTT POC Sodium Sodium 141 POC Potassium Potassium 3.4 L POC Chloride Chloride 103 Carbon Dioxide 27.4 Anion Gap 11 POC BUN BUN 14 Creatinine 0.77 POC Creatinine Estimated GFR Greater than 89 POC Glucose 358 H 351 H Random Glucose 327 H Calcium 8.6 Total Creatine Kinase CK-MB (CK-2) CK-MB (CK-2) % Troponin I Triglycerides 263 H Cholesterol 184 LDL Cholesterol, Calc 90 HDL Cholesterol 41.8 Cholesterol/HDL Ratio 4.40 Urine Color Urine Clarity Urine pH Ur Specific [place] Urine Protein Urine Glucose (UA) Urine Ketones Urine Occult Blood Urine Nitrate Urine Bilirubin Urine Urobilinogen Ur Leukocyte Esterase Urine RBC Urine WBC Ur Squamous Epith Cells Micro UA Comment Ur Microscopic Review Urine Culture Comments 08/13/18 12:44 WBC RBC Hgb POC Hgb (Calc) Hct POC Hct MCV MCH MCHC RDW Plt Count MPV Prelim Diff (Auto) Neut % (Auto) Lymph % (Auto) [place] % (Auto) Eos % (Auto) Baso % (Auto) Neut # (Auto) Lymph # (Auto) [place] # (Auto) Eos # (Auto) Baso # (Auto) WBC Differential Seg Neuts % (Manual) Lymphocytes % (Manual) Monocytes % (Manual) Basophils % (Manual) Abs Neuts (Manual) Differential Comment Platelet Estimate Platelet Morphology RBC Morphology PT INR APTT POC Sodium Sodium POC Potassium Potassium POC Chloride Chloride Carbon Dioxide Anion Gap POC BUN BUN Creatinine POC Creatinine Estimated GFR POC Glucose 349 H Random Glucose Calcium Total Creatine Kinase CK-MB (CK-2) CK-MB (CK-2) % Troponin I Triglycerides Cholesterol LDL Cholesterol, Calc HDL Cholesterol Cholesterol/HDL Ratio Urine Color Urine Clarity Urine pH Ur Specific [place] Urine Protein Urine Glucose (UA) Urine Ketones Urine Occult Blood Urine Nitrate Urine Bilirubin Urine Urobilinogen Ur Leukocyte Esterase Urine RBC Urine WBC Ur Squamous Epith Cells Micro UA Comment Ur Microscopic Review Urine Culture Comments - Imaging Impressions Head MRI 08/12/18 00:00 CONCLUSION: Normal noncontrast MRI of the brain. There is no acute infarct or other acute intracranial abnormality demonstrated. Head CT 08/12/18 16:29 CONCLUSION: 1. Negative CT Head non contrast. Report was called by Dr. Ulloa to Dr. Cristy Steen at 4:57 PM on 08/12/2018. Head CTA 08/12/18 16:29 CONCLUSION: 1. Negative CTA Head. Findings were called to Dr. Dai at 5:12 PM on 08/12/2018. Neck CTA 08/12/18 16:29 CONCLUSION: 1. Negative CTA Carotid. CT CAD 08/12/18 16:31 CONCLUSION: Physiological brain perfusion parameters with RAPID analysis as above. The decision for consideration of therapy is multi factorial and multi disciplinary relying on subjective and objective clinical data. This data is not construed or intended to be the sole determinant of treatment eligibility. Chest X-Ray 08/13/18 06:00 CONCLUSION: 1. No acute cardiopulmonary disease. Assessment and Plan - Plan 48-year-old female right-handed presenting with Transient dysarthria/dizziness now exam neurologically intact rule out TIA vs Post anesthesia effect Possible Relative hypoglycemic reaction CTA of the head normal neck CTA- normal, MRI head - negative echo negative We will proceed with MRI of the head seen by Dr. Dai Speech therapy consult Do a bedside swallowing evaluation ASA daily Diabetes type 2 insulin requiring Possible relative hypoglycemic reaction - patient use to glucose readings 200s and above -sliding scale NovoLog - restart her home insulin regimen- advise to ff up with PCP in 3 days Diabetic retinopathy OU Outpatient follow-up with ophthalmology- patient to call for ff up appt Diabetic neuropathy Continue on gabapentin 300 mg twice a day Initial Elevated BP readings no known history of HTN- - now with Good readings - no meds - patient did get IM epinephrine prior to coming here - monitor BPs as OP - 12LEKG shows LVH by voltage criteria and LVH strain. CXR- no acute I/e - echo unremarkable Chronic back pain Continue on hydrocodone 7.5 mg every 8 as needed for pain DC home today OP ff up with PCP- for BP monitoring OP ff up woth Opthalmology Bilateral EDs/SCDs Hold chemical prophylaxis till MRI resulted and + recent eye laser surgery
[2018-08-13 14:16] VITALS: RESP 18
--- NOTE | 2018-08-13 14:18 | ECHRPT ---
Indication: CVA / TIA CONCLUSIONS Normal left ventricular size. Wall thickness is normal. Mild aortic valve regurgitation. There is trace tricuspid valve regurgitation. The estimated pulmonary arterial pressure is 22 mmHg. BP: / HR: Rhythm: MEASUREMENTS (Male / Female) Normal Values Technical Quality:Good 2D ECHO LV Diastolic Diameter PLAX 4.4 cm 4.2 - 5.9 / 3.9 - 5.3 cm LV Systolic Diameter PLAX 3.1 cm IVS Diastolic Thickness 1.0 cm 0.6 - 1.0 / 0.6 - 0.9 cm LVPW Diastolic Thickness 1.0 cm 0.6 - 1.0 / 0.6 - 0.9 cm LV Relative Wall Thickness 0.5 RV Internal Dim ED PLAX 3.1 cm LVOT Diameter 2.1 cm Aortic Root Diameter 2.8 cm LA Systolic Diameter LX 3.2 cm 3.0 - 4.0 / 2.7 - 3.8 cm M-MODE AV Cusp Separation MM 1.8 cm DOPPLER AV Peak Velocity 137.0 cm/s AV Peak Gradient 7.5 mmHg AI Peak Velocity 392.0 cm/s AI Peak Gradient 61.5 mmHg AI Pressure Half Time 768.0 ms LVOT Peak Velocity 120.0 cm/s LVOT Peak Gradient 5.8 mmHg AV Area Cont Eq pk 3.0 cm Mitral E Point Velocity 74.5 cm/s Mitral A Point Velocity 69.6 cm/s Mitral E to A Ratio 1.1 LV E' Lateral Velocity 12.7 cm/s Mitral E to LV E' Lateral Ratio 5.9 LV E' Septal Velocity 7.0 cm/s Mitral E to LV E' Septal Ratio 10.6 TR Peak Velocity 172.0 cm/s TR Peak Gradient 11.8 mmHg Right Atrial Pressure 10.0 mmHg Pulmonary Artery Systolic Pressu 21.8 mmHg Right Ventricular Systolic Press 21.8 mmHg PV Peak Velocity 110.0 cm/s PV Peak Gradient 4.8 mmHg FINDINGS LEFT VENTRICLE Normal left ventricular size. Wall thickness is normal. The left ventricular systolic function is normal with an estimated ejection fraction in the range of 60-65%. RIGHT VENTRICLE Normal right ventricular size and systolic function. LEFT ATRIUM The left atrial size is normal. RIGHT ATRIUM The right atrial size is normal. ATRIAL SEPTUM Normal atrial septal thickness without atrial level shunting by limited color doppler interrogation. AORTA The aortic root and proximal ascending aorta are normal in size on limited imaging. MITRAL VALVE Structurally normal mitral valve. No mitral valve stenosis or regurgitation. AORTIC VALVE Trileaflet aortic valve. Mild aortic valve regurgitation. TRICUSPID VALVE There is trace tricuspid valve regurgitation. The estimated pulmonary arterial pressure is 22 mmHg. PULMONARY VALVE No pulmonary valve regurgitation or stenosis. VESSELS The inferior vena cava is normal in size. PERICARDIUM No pericardial effusion. Dane Hull MD, FACC (Electronically Signed) Final Date:13 August 2018 14:17
--- NOTE | 2018-08-13 15:28 | ECG ---
Date Performed: 08/12/2018 Time Performed: 17:32:29 PTAGE: 48 years EKG: Sinus rhythm MODERATE VOLTAGE CRITERIA FOR LVH, CONSIDER NORMAL VARIANT MODERATE T-WAVE ABNORMALITY, CONSIDER ANT EROLATERAL ISCHEMIA ABNORMAL ECG NO PREVIOUS TRACING DOCTOR: Angela Hernandez Interpretating Date/Time 08/13/2018 15:25:17
[2018-08-13 18:41] LABS: Hemoglobin A1c 10.8 % (4.3-6.0)
[2018-08-13 18:52] VITALS: BP 154/75; PULSE 71; TEMP 97.8; O2SAT 98
== END 2018-08-13 19:41 | disposition home or self-care (01) ==
LOC: NEPE 16:19 → NEDA 18:36 → N05 21:03
PROVIDERS: ADMIT Internal Medicine; ATTEND Internal Medicine